=== PATIENT | female | born 1990 | race Hispanic/Latino ===

== ENCOUNTER 2023-12-23 15:16 | Emergency (ER) | payer OTHER ==
[~2023-12-23] VITALS: Ht 162.6 cm; Wt 86.2 kg
[2023-12-23 15:58] LABS: BASOPHILS # (AUTO) 0.02 K/uL (0.00-0.20); BASOPHILS % (AUTO) 0.3 % (0.0-5.0); EOSINOPHILS # (AUTO) 0.04 K/uL (0.00-0.70); EOSINOPHILS % (AUTO) 0.6 % (0.0-8.0); HEMATOCRIT 30.3 % (36-48); IMMATURE GRANULOCYTE ABSOLUTE 0.05 K/uL (0-1); LYMPHOCYTES # (AUTO) 1.9 K/uL (1.0-4.8); LYMPHOCYTES % (AUTO) 27.4 % (21.0-51.0); MEAN CORPUSCULAR HEMOGLOBIN 15.6 pg (27.0-33.0); MEAN CORPUSCULAR HGB CONC 27.7 g/dL (32.0-36.0); MEAN CORPUSCULAR VOLUME 56.1 fL (79-99); MONOCYTES # (AUTO) 1.1 K/uL (0.1-1.0); MONOCYTES % (AUTO) 15.5 % (3.0-13.0); NEUTROPHILS # (AUTO) 3.9 K/uL (1.8-7.7); NEUTROPHILS % (AUTO) 55.5 % (40.0-77.0); PLATELET COUNT (AUTO) 411 K/uL (130-400); RED CELL DISTRIBUTION WIDTH 22.1 % (11.0-15.5)
[2023-12-23 16:14] LABS: POTASSIUM 3.4 mmol/L (3.5-5.1)
[2023-12-23 16:19] LABS: ALBUMIN 3.9 g/dL (3.5-5.0); BILIRUBIN,TOTAL 0.5 mg/dL (0.2-1.0); TOTAL PROTEIN, SERUM 8.4 g/dL (6.0-8.3)
[2023-12-23 17:15] LABS: APPEARANCE,URINE TURBID (CLEAR); BILIRUBIN,URINE NEGATIVE (NEGATIVE); COLOR,URINE ORANGE (YELLOW); GLUCOSE, URINE (UA) NEGATIVE (NEGATIVE); KETONES,URINE 5 mg/dL (NEGATIVE); LEUKOCYTE ESTERASE ,URINE 250 Leu/uL (NEGATIVE); NITRATE,URINE NEGATIVE (NEGATIVE); OCCULT BLOOD,URINE LARGE (NEGATIVE); PH,URINE 5.5 (5.0-8.0); PROTEIN,URINE 100 mg/dL (NEGATIVE); UROBILINOGEN,URINE 0.2 mg/dL (0.2-1.0)
[2023-12-23 17:16] LABS: ADD UA MICROSCOPIC YES
[2023-12-23 17:58] LABS: BACTERIA,URINE MANY /HPF (None Seen); RBC,URINE TNTC /HPF (0-1); SQUAMOUS EPITHELIAL CELL,UR Few /HPF (0-2); WBC,URINE TNTC /HPF (0-1)
[2023-12-23] MEDS: 0.9%NACL 1000ML 1,000 ML IV ONE (18:14)
[2023-12-23] MEDS ORDERED: IOHEXOL-350 75 ML VIAL IV ONE (19:55)
[2023-12-23] MEDS ORDERED: DOCU-116 PO (21:36)
[2023-12-23] MEDS ORDERED: FERR324T4 PO (21:36)
[2023-12-24 00:10] VITALS: BP 113/65; PULSE 110; RESP 18; O2SAT 99
== END 2023-12-24 00:42 | disposition home or self-care (01) ==
LOC: EDH 15:16
DX: D64.9 Anemia, unspecified (principal); F41.9 Anxiety disorder, unspecified; Z90.49 Acquired absence of other specified parts of digestive tract
CPT/HCPCS: 99285; 96360; 71270; 96361; 71045; 84484; 80053; 84703; 85025; 85378; 87077; 87088; 87186; 81001; 36415; 93005; J7030; Q9967; 81025